=== PATIENT | female | born 1970 | race Caucasian/White ===

== ENCOUNTER → 2020-05-10 | Outpatient (CLI) | payer OTHER ==
[~2020-05-10] MED LIST: BENTYL 10MG CAP10 MG PO; BUSPAR 10MG10 MG PO; DITROPAN XL5 MG PO; ESTRACE1 MG PO; FIORICET TAB1 EA PO; FLEXERIL 10 MG10 MG PO; INDERAL TAB 1010 MG PO; LYRICA150 MG PO; OMEPRAZOLE20 MG PO; PRINIVIL10 MG PO; REMERON30 M1 PO; ULORIC 40 MG TA40 MG PO; VIIBRYD40 MG PO; WELLBUTRIN SR150 M1 PO; WELLBUTRIN XL300 M1 PO
== END ==
LOC: KOH-I 08:00
DX: R51.9 Headache, unspecified (principal); J32.8 Other chronic sinusitis
CPT/HCPCS: 70551

== ENCOUNTER → 2020-08-31 | Outpatient (CLI) | payer OTHER | LOC: EXRD 10:37 | DX: R06.02 Shortness of breath (principal); R06.4 Hyperventilation | CPT/HCPCS: 71046 ==

== ENCOUNTER → 2020-12-28 | Outpatient (CLI) | payer OTHER | LOC: HEART 5 10:19 | DX: R06.02 Shortness of breath (principal) | CPT/HCPCS: 94010 ==

== ENCOUNTER → 2021-01-02 | Outpatient (CLI) | payer OTHER | LOC: MAMO 11:16 | DX: Z12.31 Encounter for screening mammogram for malignant neoplasm of breast (principal); Z90.710 Acquired absence of both cervix and uterus; N63.21 Unspecified lump in the left breast, upper outer quadrant | CPT/HCPCS: 77063; 77067 ==

== ENCOUNTER → 2021-01-05 | Outpatient (CLI) | payer OTHER | LOC: KOH-I 08:18 | DX: M51.17 Intervertebral disc disorders with radiculopathy, lumbosacral region (principal); M51.36 Other intervertebral disc degeneration, lumbar region | CPT/HCPCS: 72148 ==

== ENCOUNTER → 2021-02-06 | Outpatient (CLI) | payer OTHER ==
[2021-02-06 11:15] LABS: HEMOGLOBIN 12.5 gm/dl (12.3-15.3); RED BLOOD COUNT 4.11 M/UL (4.00-5.10); WHITE BLOOD COUNT 5.4 K/UL (4.5-11.0)
[2021-02-06 11:31] LABS: BUN/CREATININE RATIO 14 (0-10)
== END ==
LOC: US 01-05 13:30
PROVIDERS: Nurse Practitioner Family
DX: I10 Essential (primary) hypertension (principal); E78.5 Hyperlipidemia, unspecified; F41.9 Anxiety disorder, unspecified; E55.9 Vitamin D deficiency, unspecified; R92.2 Inconclusive mammogram
CPT/HCPCS: 36415; 76641; 80053; 80061; 81001; 84439; 84443; 85027

== ENCOUNTER → 2021-06-01 | Day surgery (SDC) | payer OTHER ==
[~2021-06-01] MED LIST changes: +APPLE CIDER VI1 EACH PO; +BUSPIRONE HCL30 MG PO; +FEBUXOSTAT80 MG PO; +FISH OIL 1,0001 EACH PO; +FLUOXETINE HCL60 MG PO; +GABAPENTIN800 MG PO; +IBU600 MG PO; +MUCINEX600 MG PO; +PROAIR HFA8.5 GM INH; +VITAMIN D31250 MCG PO
== END | disposition home or self-care (01) ==
LOC: OR 07:03
DX: Z12.11 Encounter for screening for malignant neoplasm of colon (principal); E78.5 Hyperlipidemia, unspecified; I10 Essential (primary) hypertension; G47.33 Obstructive sleep apnea (adult) (pediatric); L93.0 Discoid lupus erythematosus; G43.909 Migraine, unspecified, not intractable, without status migrainosus; E55.9 Vitamin D deficiency, unspecified; K21.9 Gastro-esophageal reflux disease without esophagitis; Z87.19 Personal history of other diseases of the digestive system; Z98.51 Tubal ligation status; Z20.822 Contact with and (suspected) exposure to COVID-19
CPT/HCPCS: J2704; J7030

== ENCOUNTER → 2021-08-17 | Day surgery (SDC) | payer OTHER ==
[~2021-08-17] MED LIST changes: +APPLE CIDER VI300 MG PO; +ARNUITY ELLIPT50 MCG INH; +BUTALBITAL-ASA1 EACH PO; +CLARITIN10 M2 PO; +FISH OIL 500 M1 EAC2 PO; +GLUCOSAMINE1000 MG PO
== END | disposition home or self-care (01) ==
LOC: OR 06:40
DX: K29.70 Gastritis, unspecified, without bleeding (principal); K25.9 Gastric ulcer, unspecified as acute or chronic, without hemorrhage or perforation; K31.89 Other diseases of stomach and duodenum; K21.9 Gastro-esophageal reflux disease without esophagitis; I10 Essential (primary) hypertension; M19.90 Unspecified osteoarthritis, unspecified site; F32.A Depression, unspecified; Z72.89 Other problems related to lifestyle; Z79.1 Long term (current) use of non-steroidal anti-inflammatories (NSAID); Z79.899 Other long term (current) drug therapy
CPT/HCPCS: J2704; J7120

== ENCOUNTER → 2021-10-01 | Outpatient (CLI) | payer OTHER | LOC: CT 11:30 | DX: R14.0 Abdominal distension (gaseous) (principal); R10.9 Unspecified abdominal pain; K59.00 Constipation, unspecified | CPT/HCPCS: 36415; 82565; 84520; Q9967 ==

== ENCOUNTER → 2021-12-06 | Outpatient (CLI) | payer OTHER | LOC: EXRD 09:47 | DX: R06.02 Shortness of breath (principal) | CPT/HCPCS: 71046 ==

== ENCOUNTER → 2022-01-01 | Outpatient (CLI) | payer OTHER | LOC: KOH-I 09:17 | DX: R10.13 Epigastric pain (principal); K76.0 Fatty (change of) liver, not elsewhere classified; K82.8 Other specified diseases of gallbladder; K80.20 Calculus of gallbladder without cholecystitis without obstruction | CPT/HCPCS: 76700 ==